=== PATIENT | male | born 1965 | race Caucasian/White ===

== ENCOUNTER 2024-09-26 11:29 | Emergency (ER) | payer SELFPAY ==
[~2024-09-26] VITALS: Ht 170.2 cm; Wt 82.0 kg
[2024-09-26 11:36] VITALS: BP 123/79; TEMP 97.2; O2SAT 99
== END 2024-09-26 11:47 | disposition left against medical advice (07) ==
LOC: M ED 11:29
DX: Z53.21 Procedure and treatment not carried out due to patient leaving prior to being seen by health care provider (principal)